=== PATIENT | female | born 1955 | race Caucasian/White ===

== ENCOUNTER → 2017-08-25 | Outpatient (CLI) | payer MEDICARE ==
--- NOTE | 2017-08-26 09:32 | MM ---
Reason for exam: screening (asymptomatic). Last mammogram was performed 1 year ago. History: Patient is postmenopausal. Physical Findings: A clinical breast exam by your physician is recommended on an annual basis and results should be correlated with mammographic findings. MG Screening Mammo w CAD Bilateral CC and MLO view(s) were taken. Prior study comparison: August 25, 2016, bilateral MG screening mammo w CAD. September 21, 2013, mammogram, performed at [place]. The breast tissue is heterogeneously dense. This may lower the sensitivity of mammography. No suspicious abnormality. No significant changes when compared with prior studies. ASSESSMENT: Negative, BI-RAD 1 RECOMMENDATION: Routine screening mammogram of both breasts in 1 year.
== END | disposition home or self-care (01) ==
LOC: RADMAMWWP 07:41
PROVIDERS: ATTEND Internal Medicine
DX: Z12.31 Encounter for screening mammogram for malignant neoplasm of breast (principal)

== ENCOUNTER → 2018-09-01 | Outpatient (CLI) | payer OTHER ==
--- NOTE | 2018-09-02 08:59 | MM ---
Reason for exam: screening (asymptomatic). Last mammogram was performed 1 year ago. History: Patient is postmenopausal. Took hormonal contraceptives for 30 years. Physical Findings: A clinical breast exam by your physician is recommended on an annual basis and results should be correlated with mammographic findings. MG 3D Screening Mammo W/Cad Bilateral CC and MLO view(s) were taken. Prior study comparison: August 25, 2017, bilateral MG screening mammo w CAD. August 25, 2016, bilateral MG screening mammo w CAD. There are scattered fibroglandular densities. Focal asymmetry with architectural distortion middle left MLO view. This finding is changed when compared with previous exams. ASSESSMENT: Incomplete: need additional imaging evaluation, BI-RAD 0 RECOMMENDATION: Special view mammogram of the left breast. If lesion persists on supplemental views, image directed ultrasound is recommended. [facility] will attempt to contact patient to return for supplemental views and ultrasound if indicated.
== END | disposition home or self-care (01) ==
LOC: RADMAMWWP 07:00
PROVIDERS: ATTEND Obstetrics & Gynecology
DX: Z12.31 Encounter for screening mammogram for malignant neoplasm of breast (principal)
CPT/HCPCS: 77063; 77067

== ENCOUNTER → 2018-09-21 | Outpatient (CLI) | payer OTHER ==
--- NOTE | 2018-09-21 10:42 | MM ---
Reason for exam: additional evaluation requested from abnormal screening. Last mammogram was performed 1 month ago. History: Patient is postmenopausal. Took hormonal contraceptives for 30 years. Physical Findings: Nurse did not find any significant physical abnormalities on exam. MG 3D Work Up W/Cad LT Spot compression CC, spot compression MLO, and ML view(s) were taken of the left breast. Prior study comparison: September 01, 2018, bilateral MG 3d screening mammo w/cad. August 25, 2017, bilateral MG screening mammo w CAD. There are scattered fibroglandular densities. There is no discrete abnormality. These results were verbally communicated with the patient and result sheet given to the patient on 09/21/18. ASSESSMENT: Negative, BI-RAD 1 RECOMMENDATION: Return to routine screening mammogram schedule for both breasts.
== END | disposition home or self-care (01) ==
LOC: RADMAMWWP 07:26
PROVIDERS: ATTEND Obstetrics & Gynecology
DX: R92.8 Other abnormal and inconclusive findings on diagnostic imaging of breast (principal)
CPT/HCPCS: 77061; 77065

== ENCOUNTER → 2020-06-27 | Outpatient (CLI) | payer BC ==
--- NOTE | 2020-06-28 14:50 | MM ---
Reason for exam: screening (asymptomatic). Last mammogram was performed 1 year and 9 months ago. History: Patient is postmenopausal. Took hormonal contraceptives for 30 years. Physical Findings: A clinical breast exam by your physician is recommended on an annual basis and results should be correlated with mammographic findings. MG 3D Screening Mammo W/Cad Bilateral CC and MLO view(s) were taken. Prior study comparison: September 21, 2018, left breast MG 3d work up w/cad LT. September 01, 2018, bilateral MG 3d screening mammo w/cad. The breast tissue is heterogeneously dense. This may lower the sensitivity of mammography. No significant changes when compared with prior studies. ASSESSMENT: Benign, BI-RAD 2 RECOMMENDATION: Routine screening mammogram of both breasts in 1 year.
== END | disposition home or self-care (01) ==
LOC: RADMAMWWP 15:29
PROVIDERS: ATTEND Obstetrics & Gynecology
DX: Z12.31 Encounter for screening mammogram for malignant neoplasm of breast (principal)
CPT/HCPCS: 77063; 77067

== ENCOUNTER → 2021-07-01 | Outpatient (CLI) | payer BC ==
--- NOTE | 2021-07-07 12:24 | MM ---
Reason for exam: screening (asymptomatic). Last mammogram was performed 1 year ago. History: Patient is postmenopausal. Took hormonal contraceptives for 30 years. Physical Findings: A clinical breast exam by your physician is recommended on an annual basis and results should be correlated with mammographic findings. MG 3D Screening Mammo W/Cad Bilateral CC and MLO view(s) were taken. Prior study comparison: June 27, 2020, bilateral MG 3d screening mammo w/cad. September 21, 2018, left breast MG 3d work up w/cad LT. There are scattered fibroglandular densities. No significant changes when compared with prior studies. ASSESSMENT: Benign, BI-RAD 2 RECOMMENDATION: Routine screening mammogram of both breasts in 1 year.
== END | disposition home or self-care (01) ==
LOC: RADMAMWWP 10:19
PROVIDERS: ATTEND Obstetrics & Gynecology
DX: Z12.31 Encounter for screening mammogram for malignant neoplasm of breast (principal)
CPT/HCPCS: 77063; 77067

== ENCOUNTER → 2022-07-02 | Outpatient (CLI) | payer OTHER ==
--- NOTE | 2022-07-06 07:57 | MM ---
Reason for Exam: Screening (asymptomatic). Last screening mammogram was performed 12 month(s) ago. Patient History: Menarche at age 13. First Full-Term at age 27. Postmenopausal. Patient used Hormonal Contraceptives for 30 years. Risk Values: Oralia 5 year model risk: 1.9%. NCI Lifetime model risk: 6.7%. Prior Study Comparison: 09/21/2018 Left Diagnostic Mammogram, [facility]. 06/27/2020 Bilateral Screening Mammogram, [facility]. 07/01/2021 Bilateral Screening Mammogram, [facility]. Tissue Density: There are scattered fibroglandular densities. Findings: Analyzed By CAD. Benign-appearing spherical calcifications are present bilaterally. No significant interval changes are evident. No suspicious groups of microcalcifications, spiculated or lobular masses, architectural distortion or other secondary signs of malignancy are mammographically apparent. Overall Assessment: Benign, BI-RAD 2 Management: Screening Mammogram of both breasts in 1 year. A negative mammogram report should not preclude additional follow up of suspicious palpable abnormalities. Patient should continue monthly self breast exam. A clinical breast exam by your physician is recommended on an annual basis and results should be correlated with mammographic findings. Electronically signed and approved by: Kimo Womack D.O. Radiologis
== END | disposition home or self-care (01) ==
LOC: RADMAMWWP 07:47
PROVIDERS: ATTEND Internal Medicine
DX: Z12.31 Encounter for screening mammogram for malignant neoplasm of breast (principal)
CPT/HCPCS: 77063; 77067

== ENCOUNTER → 2023-06-08 | Outpatient (CLI) | payer MEDICARE ==
--- NOTE | 2023-06-08 14:25 | MM ---
Reason for Exam: Clinical finding. Last screening mammogram was performed 11 month(s) ago. Patient History: Menarche at age 13. First Full-Term at age 27. Postmenopausal. Patient used Hormonal Contraceptives for 30 years. Risk Values: Oralia 5 year model risk: 1.9%. NCI Lifetime model risk: 6.4%. Tissue Density: There are scattered fibroglandular densities. Findings: Analyzed By CAD. Right breast Architectural distortion in the right breast 6.5 cm from nipple on CC view posterior nipple line and 3.1 cm from nipple on MLO view. Left breast: No new suspicious masses, calcifications or distortions. Overall Assessment: Incomplete: need additional imaging evaluation, BI-RAD 0 Management: Diagnostic Breast Ultrasound of the right breast. Results were given to the patient verbally at the time of exam. Patient should continue monthly self-breast exams. A clinical breast exam by your physician is recommended on an annual basis. This exam should not preclude additional follow-up of suspicious palpable abnormalities. Note on Oralia scores and lifetime risk: 1. A Oralia score greater than 3% is considered moderate risk. If this is the case, consider specialist referral to assess eligibility for a risk reducing agent. 2. If overall lifetime risk for the development of breast cancer is 20% or higher, the patient may qualify for future screening with alternating mammogram and breast MRI. Electronically signed and approved by: Mahesh Whitley DO
--- NOTE | 2023-06-08 14:42 | USB ---
Reason for Exam: Clinical finding. Patient History: Menarche at age 13. First Full-Term at age 27. Postmenopausal. Patient used Hormonal Contraceptives for 30 years. Risk Values: Oralia 5 year model risk: 1.9%. NCI Lifetime model risk: 6.4%. Technique: Method: Whole Breast Handheld. Patient Position: Supine. Prior Study Comparison: 06/27/2020 Bilateral Screening Mammogram, [facility]. 07/01/2021 Bilateral Screening Mammogram, [facility]. 07/02/2022 Bilateral MG 3D screening mammo w/cad, [facility]. Findings: The whole breast of the right breast, the area of palpable concern of the right breast, the axilla of the right breast and the retroareolar of the right breast were scanned. Imaged: Ultrasound imaging of: All 4 quadrants, the retroareolar region and axilla. Heterogenous mass right breast 8:00 6 cm from nipple measuring 6.9 x 3.5 x 5.5 cm corresponds to palpable abnormality. Overall Assessment: Highly suggestive of malignancy, BI-RAD 5 Management: Ultrasound Core Biopsy of the right breast. A clinical breast exam by your physician is recommended on an annual basis and results should be correlated with mammographic findings. This exam should not preclude additional follow-up of suspicious palpable abnormalities. Results were given to the patient verbally at the time of exam. Electronically signed and approved by: Mahesh Whitley DO
== END | disposition home or self-care (01) ==
LOC: RADMAMWWP 13:46
PROVIDERS: ATTEND Family Medicine
DX: N63.10 Unspecified lump in the right breast, unspecified quadrant (principal); Z78.0 Asymptomatic menopausal state
CPT/HCPCS: 77066; 76641; G0279; 77062

== ENCOUNTER → 2023-06-25 | Outpatient (CLI) | payer MEDICARE, OTHER ==
[2023-06-25 14:05] VITALS: BP 150/95; PULSE 71; RESP 18; TEMP 98.3
--- NOTE | 2023-06-25 14:17 | P.GSHP ---
History of Present Illness H&P Date: 06/25/23 Chief Complaint: Right breast invasive lobular carcinoma Val is a 67-year-old white female seen in consultation for Dr. Rutledge regarding a [place] [address] revealing an invasive lobular carcinoma. [place] [address]. In the right breast there was an area of distortion identified with no lesions of concern noted in the left breast. An ultrasound was recommended for the [place] [address] this revealed a 6.9 x 3.5 x 5.5 cm heterogeneous mass at the 8 o'clock position. [id number]+Her2-G2 invasive lobular cancer right breast. She did feel a lump in her right breast for 3 weeks. It is not painful, it has not grown. She noted it first when she raised her arms to dry her hair and she noted some rippling. Her last mammogram was about 1 year ago. She has never had any breast surgery. She has not had any recent trauma or infection in her breast. Caffiene: occasional nicotine: none; second hand smoke as a child chocolate: daily BCP: 30 years stopped in her 50's hormones: none Family History: mother: at 54 of [place]; ? maternal grandmother ovarian cancer Hormonal History: menarche: 13 M1, breast fed: no, age at first : 27 menopause: 52 Surgical History: gallbladder Medical History: right hearing loss since childhood right hip muscle strain lower back pain Social History: nicotine: none alcohol: occasional; 6 times a year drugs: none - Constitutional Constitutional: Denies chills, Denies fever - EENT Eyes: denies blurred vision, denies pain Ears: right: decreased hearing, bilateral: tinnitus Ears, nose, mouth and throat: Denies headache, Denies sore throat - Breasts Breasts: bilateral: as per HPI - Cardiovascular Cardiovascular: Denies chest pain, Denies shortness of breath - Gastrointestinal Gastrointestinal: Reports constipation, Denies abdominal pain, Denies diarrhea, Denies nausea, Denies vomiting - Genitourinary (Female) Genitourinary: Denies dysuria, Denies hematuria - Menstruation Menstruation: Reports postmenopausal - Musculoskeletal Musculoskeletal: Reports as per HPI - Integumentary Integumentary: Denies pruritus, Denies rash - Neurological Neurological: Denies numbness, Denies weakness - Psychiatric Psychiatric: Denies anxiety, Denies depression - Endocrine Endocrine: Denies fatigue, Denies weight change - Hematologic/Lymphatic Comment: none - Allergic/Immunologic Comment: none Past Medical History Past Medical History: No Reported History History of Any Multi-Drug Resistant Organisms: None Reported Past Surgical History: Cholecystectomy Past Anesthesia/Blood Transfusion Reactions: No Reported Reaction Past Psychological History: No Psychological Hx Reported Smoking Status: Never smoker Past Alcohol Use History: Occasional Past Drug Use History: None Reported Medications and Allergies Home Medications Medication Instructions Recorded Confirmed Type No Known Home Medications 06/09/23 06/09/23 History Allergies Allergy/AdvReac Type Severity Reaction Status Date / Time No Known Allergies Allergy Verified 06/09/23 11:52 Surgical - Exam - General no distress - Eyes normal ocular movement - ENT decreased hearing right ear - Neck no masses, trachea midline - Respiratory normal respiratory effort, clear to auscultation - Cardiovascular Rhythm: regular Heart Sounds: normal: S1, S2 - Abdomen Abdomen: soft, non tender, no guarding, no rigid, no rebound - Integumentary normal turgor - Neurologic no disoriented, no combative - Musculoskeletal normal gait, normal posture - Psychiatric oriented to time, oriented to person, oriented to place, speech is normal, memory intact Breast Exam: BRA: 42C Inspection: Slightly skin with Prolene in the lateral aspect of the right breast at approximately 8:00, bilateral grade 3 ptosis Palpation: Right breast: Multi-positional exam fibroglandular changes nodularity and fullness in the lateral aspect approximately 8:00 approximately 6-7 cm in size Right axilla: No adenopathy of concern Left breast: Multi-positional exam no dominant masses or nodules of concern Left axilla: No adenopathy of concern Results Mammogram and ultrasound reviewed with Dr. Coleman from radiology Assessment and Plan Assessment: Impression: Right breast invasive lobular carcinoma T3 N0 M0 ER+KY +HER-2-G2 Plan: Presentation of case at tumor board appointment medical oncology consider oncotype Cc: Dr. Rutledge
== END ==
LOC: WWCWWP 13:53
PROVIDERS: ATTEND Surgery
DX: D05.01 Lobular carcinoma in situ of right breast (principal)
CPT/HCPCS: 77065

== ENCOUNTER → 2023-07-07 | Outpatient (CLI) | payer MEDICARE ==
--- NOTE | 2023-07-08 07:44 | CA ---
Transthoracic Echo Report Name: Val Trammell Age: 67 Gender: F : 1955 Exam Date: 07/07/2023 16:02 Exam Location: [facility] Ht (in): 62 Wt (lb): 228 Ordering Physician: Glenn Tian MD Attending/Referring Phys: Sample Selector Maia Calderon RDCS Procedure CPT: Indications: Z01.818 Chemo Cardiac Hx: Technical Quality: Fair Contrast 1: Total Dose (mL): Contrast 2: Total Dose (mL): MEASUREMENTS (Male / Female) Normal Values 2D ECHO LV Diastolic Diameter PLAX 4.2 cm 4.2 - 5.9 / 3.9 - 5.3 cm LV Systolic Diameter PLAX 2.3 cm IVS Diastolic Thickness 1.3 cm 0.6 - 1.0 / 0.6 - 0.9 cm LVPW Diastolic Thickness 1.2 cm 0.6 - 1.0 / 0.6 - 0.9 cm LV Relative Wall Thickness 0.6 RV Internal Dim ED PLAX 2.9 cm LA Volume 57.6 cm??? 18 - 58 / 22 - 52 cm??? M-MODE Aortic Root Diameter MM 3.1 cm LA Systolic Diameter MM 3.7 cm LA Ao Ratio MM 1.2 AV Cusp Separation MM 1.8 cm DOPPLER AV Peak Velocity 133.6 cm/s AV Peak Gradient 7.1 mmHg AV Mean Velocity 94.8 cm/s AV Mean Gradient 4.0 mmHg AV Velocity Time Integral 28.1 cm LVOT Peak Velocity 133.5 cm/s LVOT Peak Gradient 7.1 mmHg LVOT Velocity Time Integral 28.5 cm MV Area PHT 3.6 cm??? Mitral E Point Velocity 96.5 cm/s Mitral A Point Velocity 75.9 cm/s Mitral E to A Ratio 1.3 MV Deceleration Time 209.5 ms MV E' Velocity 14.9 cm/s Mitral E to MV E' Ratio 6.5 FINDINGS Left Ventricle Mildly increased left ventricular wall thickness. Left ventricular cavity size normal. Normal left ventricular systolic function with no obvious regional wall motion abnormalities. Left ventricular ejection fraction is estimated at 55-60 %. Right Ventricle Normal right ventricular size and function. Right ventricular systolic pressure within normal limits. Right Atrium Normal right atrial size. Left Atrium Mildly increased left atrial volume. Mitral Valve Structurally normal mitral valve. Mild mitral annular calcification. Mild mitral regurgitation. Aortic Valve No aortic valve stenosis or regurgitation. Tricuspid Valve Structurally normal tricuspid valve. Trace tricuspid regurgitation. Pulmonic Valve Trace pulmonic regurgitation. Pericardium No pericardial effusion. Aorta Normal size aortic root and proximal ascending aorta. CONCLUSIONS Normal LV size and systolic function. Mild concentric hypertrophy LVEF is estimated at 55-60%. Normal strain pattern with Global Longitudinal strain is estimated at -19% (Normal) No obvious regional wall motion abnormality Mild Mitral regurgitation No other significant valve dysfunction No prior echo to compare Previewed by: Dr Robbie Fitzpatrick (Electronically Signed) Final Date: 08 July 2023 07:44
== END | disposition home or self-care (01) ==
LOC: RADECHMAIN 15:48
PROVIDERS: ATTEND Internal Medicine Hematology & Oncology
DX: Z01.818 Encounter for other preprocedural examination (principal); C50.511 Malignant neoplasm of lower-outer quadrant of right female breast; I08.1 Rheumatic disorders of both mitral and tricuspid valves; Z17.0 Estrogen receptor positive status [ER+]
CPT/HCPCS: 93306

== ENCOUNTER → 2023-07-17 | Outpatient (CLI) | payer MEDICARE ==
--- NOTE | 2023-07-17 15:41 | PE ---
EXAMINATION TYPE: PET CT fusion skull to thigh DATE OF EXAM: 07/17/2023 CLINICAL INDICATION:Female, 67 years old with history of C50.511; TECHNIQUE: Following the intravenous administration of 9.5 mCi of F-18 FDG, whole body images are p erformed from the skull base to the midthigh. Images are reviewed on the computer in the coronal, ax ial, and sagittal planes. Reconstructed rotating images are created on independent workstation and r eviewed on the computer. A non-contrast CT is performed in conjunction with the PET scan. Glucose l evel 100 mg/dL CT DLP: 469 mGycm, Automated exposure control for dose reduction was used. COMPARISON: CT None, PET/CT None, mammography 06/14/2023.. FINDINGS: Mediastinal SUV mean is 1.7.. Hepatic parenchyma SUV mean is 2.6. SKULL BASE AND NECK: No suspicious radiotracer activity. CHEST, MEDIASTINUM, AND HILAR REGION: Abnormal FDG activity within the right breast Fibroglandular tissue max SUV 3.2. There is no enlarged lymph nodes or abnormal FDG activity otherwis e visualized. ABDOMEN AND PELVIS: No suspicious radiotracer activity. MUSCULOSKELETAL STRUCTURES: No suspicious radiotracer activity. OTHER CT: Mild cardiomegaly. Scattered colonic diverticula. Fat-containing umbilical hernia. IMPRESSION: Mild uptake within the right breast fibroglandular tissue which is ill-defined which could represent post procedural changes. No enlarged lymph nodes or other evidence for metastatic disease at this avila e.
== END | disposition home or self-care (01) ==
LOC: RADPETMAIN 08:34
PROVIDERS: ATTEND Internal Medicine Hematology & Oncology
DX: C50.511 Malignant neoplasm of lower-outer quadrant of right female breast (principal)
CPT/HCPCS: 78815; A9552

== ENCOUNTER → 2023-08-09 | Outpatient (CLI) | payer MEDICARE, OTHER ==
--- NOTE | 2023-08-09 16:12 | BD ---
EXAMINATION TYPE: Axial Bone Density DATE OF EXAM: 08/09/2023 CLINICAL HISTORY: 67 years old Female. ICD-10 CODE: C50.511 MALIG NEOPLM OF LOWER-OUTER BREAST Height: 60.7 in Weight: 227 lbs RISK FACTORS HISTORY OF: Active: yes Postmenopausal woman: age 52 MEDICATIONS: Additional Medications: vit d, anastrozole, Additional History: breast cancer EXAM MEASUREMENTS: Bone mineral densitometry was performed using the [employer] System. Bone mineral density as measured about the Lumbar spine is: ----- L1-L4(G/cm2): 0.956 T Score Values are as follows: ----- L1: -3.3 ----- L2: -2.3 ----- L3: -1.4 ----- L4: -0.7 ----- L1-L4: -1.8 Z Score Values are as follows: ----- L1: -2.8 ----- L2: -1.9 ----- L3: -0.9 ----- L4: -0.2 ----- L1-L4: -1.3 Bone mineral density baseline Bone mineral density about the R hip (g/cm2): 1.033 Bone mineral density about the L hip (g/cm2): 1.027 T Score values are as follows: -----R Neck: -1.1 -----L Neck: -0.9 -----R Total: 0.2 -----L Total: 0.2 Z Score values are as follows: -----R Neck: -0.3 -----L Neck: -0.1 -----R Total: 0.7 -----L Total: 0.7 Bone mineral density baseline FRAX%s: The graph provided illustrates a 7.4% chance for a major osteoporotic fx and a 0.6% chance fo r the hips probability for fx in 10 years time. IMPRESSION: Osteopenia (T Score between -2.5 and -1). There is slightly increased risk of fracture and the patient may be considered for treatment. Re-Screen 2-5 years. NOTE: T-SCORE=SD OF THE YOUNG ADULT MEAN.
== END | disposition home or self-care (01) ==
LOC: RADBDWWP 12:10
PROVIDERS: ATTEND Internal Medicine Hematology & Oncology
DX: C50.511 Malignant neoplasm of lower-outer quadrant of right female breast (principal); M85.89 Other specified disorders of bone density and structure, multiple sites; M81.0 Age-related osteoporosis without current pathological fracture
CPT/HCPCS: 77080

== ENCOUNTER → 2023-08-19 | Outpatient (CLI) | payer MEDICARE, OTHER ==
--- NOTE | 2023-08-19 16:05 | P.PN ---
Subjective Progress Note Date: 08/19/23 Principal diagnosis: right breast invasive lobular cancer Chief Complaint: Right breast invasive lobular carcinoma Val is a 67-year-old white female seen in consultation for Dr. Rutledge regarding a right breast core biopsy performed on revealing an invasive lobular carcinoma. She underwent a bilateral mammogram on . In the right breast there was an area of distortion identified with no lesions of concern noted in the left breast. An ultrasound was recommended for the right breast. This was performed on this revealed a 6.9 x 3.5 x 5.5 cm heterogeneous mass at the 8 o'clock position. [id number]+Her2-G2 invasive lobular cancer right breast. She did feel a lump in her right breast for 3 weeks prior to being seen in May 2023. It is not painful, it has not grown. She noted it first when she raised her arms to dry her hair and she noted some rippling. Her last mammogram was about 1 year ago. She has never had any breast surgery. She has not had any recent trauma or infection in her breast. She has started at the anastrozole approximately August 02. She does have some slight decrease in the size of the tumor. The patient's case was presented at tumor board on [id number]. I have called the patient and discussed this with her. It has been recommended that she undergo a breast MRI Oncotype PET scan She has been seen by Dr. Tian from medical oncology. The patient is aware that the plan will be for neoadjuvant treatment most likely and this will be coordinated with medical oncology. I will see the patient again in 1 month MRI performed on 1. Large area of infiltrative abnormal non-mass enhancement in the lower outer quadrant of the right breast consistent with patient's known invasive lobular cancer. Infiltrative appearance with ill-defined margins is not unusual for lobular cancer. 4 mm homogeneously enhancing nodule further posterior in the lower outer quadrant of the right breast stapler multiple prior mammograms most likely an inframammary lymph node considering the stability it is more likely not to be involved in the malignant process though involvement is not excluded 3. No finding considered suspicious and the left breast 4. No abnormal axillary lymph nodes Presented at tumor board on 07-19-23 appointment with medical oncology Note reviewed from Dr. Tian from the plan is for neoadjuvant anastrozole; she has been on this since August 02; follow up September 02 oncotype: [address]: [id number] no evidence of metastatic disease follow up after above done patient seen with her would like a lumpectomy if possible Caffiene: occasional nicotine: none; second hand smoke as a child chocolate: daily BCP: 30 years stopped in her 50's hormones: none Family History: mother: at 54 of [place]; ? maternal grandmother ovarian cancer Hormonal History: menarche: 13 M1, breast fed: no, age at first : 27 menopause: 52 Surgical History: gallbladder Medical History: right hearing loss since childhood right hip muscle strain lower back pain Social History: nicotine: none alcohol: occasional; 6 times a year drugs: none - Constitutional Constitutional: Denies chills, Denies fever - EENT Eyes: denies blurred vision, denies pain Ears: right: decreased hearing, bilateral: tinnitus Ears, nose, mouth and throat: Denies headache, Denies sore throat - Breasts Breasts: bilateral: as per HPI - Cardiovascular Cardiovascular: Denies chest pain, Denies shortness of breath - Gastrointestinal Gastrointestinal: Reports constipation, Denies abdominal pain, Denies diarrhea, Denies nausea, Denies vomiting - Genitourinary (Female) Genitourinary: Denies dysuria, Denies hematuria - Menstruation Menstruation: Reports postmenopausal - Musculoskeletal Musculoskeletal: Reports as per HPI - Integumentary Integumentary: Denies pruritus, Denies rash - Neurological Neurological: Denies numbness, Denies weakness - Psychiatric Psychiatric: Denies anxiety, Denies depression - Endocrine Endocrine: Denies fatigue, Denies weight change - Hematologic/Lymphatic Comment: none - Allergic/Immunologic Comment: none Past Medical History Past Medical History: No Reported History History of Any Multi-Drug Resistant Organisms: None Reported Past Surgical History: Cholecystectomy Past Anesthesia/Blood Transfusion Reactions: No Reported Reaction Past Psychological History: No Psychological Hx Reported Smoking Status: Never smoker Past Alcohol Use History: Occasional Past Drug Use History: None Reported Medications and Allergies Home Medications Medication Instructions Recorded Confirmed Type No Known Home Medications 06/09/23 06/09/23 History Allergies Allergy/AdvReac Type Severity Reaction Status Date / Time No Known Allergies Allergy Verified 06/09/23 11:52 Objective - Constitutional General appearance: Present: cooperative - EENT Eyes: Present: EOMI ENT: Present: hearing grossly normal - Neck Neck: Present: normal ROM - Respiratory Respiratory: bilateral: CTA - Cardiovascular Rhythm: regular - Integumentary Integumentary: Present: normal turgor - Psychiatric Psychiatric: Present: appropriate affect, intact judgment & insight - Additional findings Additional findings: Breast Exam: BRA: 42C Inspection: skin with pulling in the lateral aspect of the right breast at approximately 8:00, bilateral grade 3 ptosis Palpation: Right breast: Multi-positional exam fibroglandular changes nodularity and fullness in the lateral aspect approximately 8:00 approximately 6-7 cm in size; decreased in size slightly, less firm Right axilla: No adenopathy of concern Left breast: Multi-positional exam no dominant masses or nodules of concern Left axilla: No adenopathy of concern Assessment and Plan Assessment: Impression: Right breast invasive lobular carcinoma T3 N0 M0 ER+MN +HER-2-G2 Plan: Presentation of case at tumor board done PET scan no mets appointment medical oncology: note appreciated consider oncotype: 21 surgery after neoadjuvant hormone therapy follow up in 2 months Cc: Dr. Rutledge
[2023-08-19 16:08] VITALS: BP 141/106; PULSE 72; RESP 18; TEMP 98
== END ==
LOC: WWCWWP 15:54
PROVIDERS: ATTEND Surgery
DX: C50.911 Malignant neoplasm of unspecified site of right female breast (principal); Z17.0 Estrogen receptor positive status [ER+]

== ENCOUNTER → 2024-08-10 | Outpatient (CLI) | payer MEDICARE ==
--- NOTE | 2024-08-10 11:35 | BD ---
EXAMINATION TYPE: Axial Bone Density DATE OF EXAM: 08/10/2024 CLINICAL HISTORY: 68 years old Female. ICD-10 CODE: C50.511 BREAST CANCER Height: 61" Weight: 225lbs FRAX RISK QUESTIONS: Alcohol (3 or more units per day): No Family History (Parent hip fracture): No Glucocorticoids (More than 3mos): No (Ex: prednisone, prednisolone, methylprednisolone, dexamethasone, and hydrocortisone). History of Fracture in Adulthood: No Secondary Osteoporosis: 1. Type 1 Diabetes: No 2. Hyperthyroidism: No 3. Menopause before 45: No 4. Malnutrition: No 5. Chronic liver disease: No Rheumatoid Arthritis: No Current Tobacco Use: No RISK FACTORS HISTORY OF: Hip Fracture (Right/Left): No Spine Fracture: No History of Wrist Fracture: No Surgery to Spine/Hip(right/left)/Wrist (right/left): No MEDICATIONS: Patient has been on anastrazole and DK32 for about a year Thyroid Medications: No Osteoporosis Medications: No EXAM MEASUREMENTS: Bone mineral densitometry was performed using the [employer] System. Bone mineral density as measured about the Lumbar spine is: ----- L1-L4(G/cm2): 1.046 T Score Values are as follows: ----- L1: -2.0 ----- L2: -1.6 ----- L3: -1.5 ----- L4: 0.3 ----- L1-L4: -1.1 Z Score Values are as follows: ----- L1: -1.5 ----- L2: -1.1 ----- L3: -1.1 ----- L4: 0.8 ----- L1-L4: -0.6 Bone mineral density has: increased 8.4% since study of: 08/09/2023 Bone mineral density about the R hip (g/cm2): 1.021 Bone mineral density about the L hip (g/cm2): 1.037 T Score values are as follows: -----R Neck: -1.0 -----L Neck: -0.3 -----R Total: 0.1 -----L Total: 0.2 Z Score values are as follows: -----R Neck: -0.1 -----L Neck: 0.6 -----R Total: 0.7 -----L Total: 0.8 Bone mineral density has: decreased -0.1% since study of: 08/09/2023 FRAX%s: The graph provided illustrates a 7.5% chance for a major osteoporotic fx and a 0.6% chance fo r the hips probability for fx in 10 years time. IMPRESSION: Osteopenia (T Score between -2.5 and -1). There is slightly increased risk of fracture and the patient may be considered for treatment. Re-Screen 2-5 years. NOTE: T-SCORE=SD OF THE YOUNG ADULT MEAN.
== END | disposition home or self-care (01) ==
LOC: RADBDWWP 10:14
PROVIDERS: ATTEND Internal Medicine Hematology & Oncology
DX: C50.511 Malignant neoplasm of lower-outer quadrant of right female breast
CPT/HCPCS: 77080